=== PATIENT | female | born 2000 | race Two or more races ===

== ENCOUNTER 2025-09-15 10:46 | Emergency (ER) | payer OTHER ==
[~2025-09-15] VITALS: Ht 170.2 cm; Wt 70.0 kg
[2025-09-15 10:58] VITALS: O2SAT 99
[2025-09-15] MEDS: ACETAMINOPHEN 325MG TABLET PO SCH (11:20)
[2025-09-15] MEDS: IBUPROFEN 600MG TABLET PO ONE (12:31)
[2025-09-15] MEDS ORDERED: IBUP-1455 MT (14:30)
[2025-09-15] MEDS ORDERED: CYCL10TA21 MT (14:30)
[2025-09-15] MEDS ORDERED: CHLO473M13 MT (14:30)
[2025-09-15 15:00] VITALS: BP 113/79; PULSE 72; RESP 18; TEMP 36.8; O2SAT 99
== END 2025-09-15 15:02 | disposition home or self-care (01) ==
LOC: ER 10:46
DX: S00.511A Abrasion of lip, initial encounter (principal); S00.512A Abrasion of oral cavity, initial encounter; R60.0 Localized edema; R51.9 Headache, unspecified; V89.2XXA Person injured in unspecified motor-vehicle accident, traffic, initial encounter; Y92.410 Unspecified street and highway as the place of occurrence of the external cause; Y93.89 Activity, other specified; Y99.8 Other external cause status
CPT/HCPCS: 73660; 81025; 99283